=== PATIENT | male | born 1980 | race Caucasian/White ===

== ENCOUNTER 2022-07-24 12:57 | Emergency (ER) | payer SELFPAY ==
[~2022-07-24] VITALS: Ht 177.8 cm; Wt 80.0 kg
[2022-07-24 13:30] VITALS: BP 135/89
== END 2022-07-24 19:23 | disposition left against medical advice (07) ==
LOC: ER 12:58
DX: F29 Unspecified psychosis not due to a substance or known physiological condition (principal); Z53.21 Procedure and treatment not carried out due to patient leaving prior to being seen by health care provider